=== PATIENT | male | born 1985 | race American Indian/Alaskan Native ===

== ENCOUNTER 2016-07-14 11:24 | Emergency (ER) | payer OTHER ==
--- NOTE | 2016-07-14 15:56 | Emergency Department Report ---
Abscess Boil HPI - HPI Chief Complaint: Skin/Abscess/Foreign Body Stated Complaint: BOIL ON TAIL BONE/DIFFICULTY WALKING Time Seen by Provider: 07/14/16 15:45 Duration: 4 Days Location: Sacral/Pilonidal Severity: Moderate History: Yes Pain, No Fever, No Purulent Drainage, No Numbness, No Foreign Body , No Previous History, No Insect Bite HPI: Patient is a 31-year-old male who presents with pain and mass on his tailbone that started 4 days ago. Patient states pain worsens weight stating. Patient states he is unable to sit due to the pain. Patient states masses on slightly bigger and has no drainage. Patient denies fever/chills/nausea/ vomiting/abdominal pain. Home Medications: Previous Rx's Medication Instructions Recorded Last Taken Type Amoxicillin/K Clav Tab [Augmentin 1 tab PO Q12HR #14 tab 07/14/16 Unknown Rx 875 mg] Ibuprofen [Motrin] 800 mg PO Q8HR PRN #30 tablet 07/14/16 Unknown Rx ED Review of Systems ROS: Stated complaint: BOIL ON TAIL BONE/DIFFICULTY WALKING Other details as noted in HPI Constitutional: denies: chills, fever Eyes: denies: eye pain, eye discharge, vision change ENT: denies: ear pain, throat pain Respiratory: denies: cough, orthopnea, shortness of breath, SOB with exertion, wheezing Cardiovascular: denies: chest pain, palpitations, orthopnea, edema Endocrine: no symptoms reported. denies: increased hunger Gastrointestinal: denies: abdominal pain, nausea, diarrhea Genitourinary: denies: urgency, dysuria Musculoskeletal: denies: back pain, joint swelling, arthralgia Skin: denies: rash, lesions Neurological: abnormal gait. denies: headache, weakness, paresthesias, confusion Psychiatric: denies: anxiety, depression, auditory hallucinations Hematological/Lymphatic: denies: easy bleeding, easy bruising ED Past Medical Hx - Past Medical History Previous Medical History?: No - Surgical History Past Surgical History?: No - Social History Smoking Status: Current Every Day Smoker Substance Use Type: None - Medications Home Medications: Home Medications Medication Instructions Recorded Confirmed Last Taken Type Amoxicillin/K Clav Tab [Augmentin 1 tab PO Q12HR #14 tab 07/14/16 Unknown Rx 875 mg] Ibuprofen [Motrin] 800 mg PO Q8HR PRN #30 tablet 07/14/16 Unknown Rx ED Abscess Boil Physical Exam - Exam General: Vital signs noted. No distress. Alert and acting appropriately. Size: 5 cm Exam: Yes Tenderness, Yes Fluctuance, Yes Normal Neurologic Exam, Yes Normal Circulation, No Surrounding Cellulites/Erythema, No Lymphangitis, No Crepitation , No Heart Murmur I & D Note - I & D Note I & D Note: Patient positioned appropriately, 15cc lidocaine without epinephrine was used as a local anesthetic. #11 blade scalpal used for single incision. Additional local anesthetic injected into surrounding viable tissue prior to blunt dissection of loculated adhesions. Copius drainage of pus ( culture obtained). Wound packed with iodoform gauze. Procedure tolerated without complications. Wound dressed with sterile 4x4 guaze and paper tape. Pt tolerated procedure well. ED Course Vital Signs 07/14/16 11:59 Temperature 99 F Pulse Rate 88 Respiratory 18 Rate Blood Pressure 142/98 O2 Sat by Pulse 97 Oximetry Critical care attestation.: If time is entered above; I have spent that time in minutes in the direct care of this critically ill patient, excluding procedure time. ED Medical Decision Making - Medical Decision Making 31-year-old male presents with right buttock abscess, Patient alert and oriented 3 vital signs stable. ED course: Patient received Toradol 60 mg IM prior to incision and drainage. Referred to incision and drainage note. Patient tolerated procedure well. Patient to go home on antibiotics and Motrin for pain. Discussed to follow up with primary care physician or ED in 4 days. ED Disposition Clinical Impression: Pilonidal abscess, Abscess of buttock, right Disposition: DISCHARGED TO HOME OR SELFCARE Is pt being admited?: No Does the pt Need Aspirin: No Condition: Stable Instructions: Abscess (ED), Abscess Incision and Drainage (ED) Prescriptions: Amoxicillin/K Clav Tab [Augmentin 875 mg] 1 tab PO Q12HR #14 tab Ibuprofen [Motrin] 800 mg PO Q8HR PRN #30 tablet PRN Reason: Pain Referrals: PRIMARY CARE, [Primary Care Provider] - 3-5 Days [facility] [Outside] - 3-5 Days [facility] [Outside] - 3-5 Days [facility] [Outside] - 3-5 Days Forms: Work/School Release Form(ED) Time of Disposition: :09
[2016-07-14] MEDS ORDERED: TORADOL IM ONE (15:57)
[2016-07-14] MEDS ORDERED: XYLOCAINE 2% INFILTRATI ONE (15:58)
[2016-07-14 17:27] VITALS: BP 121/63
== END 2016-07-14 17:26 | disposition home or self-care (01) ==
LOC: ED 11:24
DX: L02.31 Cutaneous abscess of buttock (principal); L05.01 Pilonidal cyst with abscess
CPT/HCPCS: 10060; 87116; 96372; 99282; J1885

== ENCOUNTER 2017-02-22 23:28 | Emergency (ER) | payer OTHER ==
--- NOTE | 2017-02-23 00:22 | XRay Report ---
FINAL REPORT EXAM: XR SHOULDER 2+V RT HISTORY: RIGHT SHOULDER PAIN COMPARISON: None available. FINDINGS: Three views of right shoulder obtained. Blunting of the distal clavicle which may relate to prior acromioplasty or posttraumatic changes. Mild osteophyte of the distal clavicle. Glenohumeral joint space preserved. No acute fracture dislocation. IMPRESSION: Blunting of the distal clavicle which may relate to sequelae of prior trauma or surgery. Mild osteophyte of the distal clavicle. No acute bony findings.
--- NOTE | 2017-02-23 04:27 | Emergency Department Report ---
HPI - General Chief Complaint: Extremity Injury, Upper Time Seen by Provider: 02/23/17 04:11 - HPI HPI: Patient is a 31-year-old male presents to ED complaining of right upper arm pain for the past 2 days. Patient states 2 days ago he was helping his friend move some couches up the stairs when he is friend dropped his end of the couch while he has remained holding the couch for a while. Patient states since then some pain in his upper biceps area. Patient states pain is localized to that area and does not radiate anywhere else. Patient denies any loss of sensation in the arm. He describes the pain as throbbing and aching in nature, 6 out of 10 in intensity. He denies fevers chills nausea vomiting abdominal pain or any other problems ED Past Medical Hx - Past Medical History Previous Medical History?: No - Surgical History Past Surgical History?: No - Social History Smoking Status: Current Every Day Smoker Substance Use Type: None - Medications Home Medications: Home Medications Medication Instructions Recorded Confirmed Last Taken Type Amoxicillin/K Clav Tab [Augmentin 1 tab PO Q12HR #14 tab 07/14/16 Unknown Rx 875 mg] Cyclobenzaprine [Flexeril 10 MG 10 mg PO QHS #20 tablet 02/23/17 Unknown Rx TAB] Ibuprofen [Motrin 800 MG tab] 800 mg PO Q8HR PRN #30 tablet 02/23/17 Unknown Rx ED Review of Systems ROS: Stated complaint: POSS DISLOCATED RT SHOULDER Other details as noted in HPI Constitutional: denies: chills, fever Eyes: denies: eye pain, eye discharge, vision change ENT: denies: ear pain, throat pain Respiratory: denies: cough, shortness of breath, wheezing Cardiovascular: denies: chest pain, palpitations Endocrine: no symptoms reported Gastrointestinal: denies: abdominal pain, nausea, diarrhea Genitourinary: denies: urgency, dysuria Musculoskeletal: myalgia. denies: back pain, joint swelling, arthralgia Skin: denies: rash, lesions Neurological: denies: headache, weakness, paresthesias Psychiatric: denies: anxiety, depression Hematological/Lymphatic: denies: easy bleeding, easy bruising Physical Exam - Physical Exam Vital Signs: Vital Signs 02/22/17 02/23/17 23:38 03:42 Temperature 98.2 F 97.8 F Pulse Rate 74 66 Respiratory 18 16 Rate Blood Pressure 147/99 Blood Pressure 155/100 [Left] O2 Sat by Pulse 97 97 Oximetry Physical Exam: GENERAL: Alert and oriented x3, no apparent distress, Normal Gait, atraumatic. HEAD: Head is normocephalic and a-traumatic. LUNGS: Symetrical with respiration, No wheezing, no rales or crackles, CTAB. HEART: S1, S2 present, regular rate and rhythm without murmur, no rubs, no gallops. Non tender to palpation EXTREMITIES/MUSCULOSKELETAL: No cyanosis, clubbing, rash, lesions or edema. Full ROM bilaterally. UE/LE Pulses 2+ bilaterally. LE and UE 5+ strength bilaterally, shoulder joints are intact. No pain with active and passive range of motion. Tender nose palpation of the biceps muscle on the right upper arm. No ecchymoses no swelling no bleeding. NEUROLOGIC: The patient is cooperative with no focal neurologic deficits.Normal speech. Normal sensation in bilateral upper and lower extremities, No loss of sensation, SKIN: Warm and dry, No lesions, No ulceration or induration present. ED Course Vital Signs 02/22/17 02/23/17 23:38 03:42 Temperature 98.2 F 97.8 F Pulse Rate 74 66 Respiratory 18 16 Rate Blood Pressure 147/99 Blood Pressure 155/100 [Left] O2 Sat by Pulse 97 97 Oximetry ED Medical Decision Making - Medical Decision Making 31-year-old male presents with myalgia of the bicep muscle ED course: Patient received Motrin and Flexeril in ED. Discussed the patient now has a list in the next couple of days Discussed the patient will follow up with primary care physician Discussed the patient and take medications as prescribed. Patient has no neurological deficit. Patient is alert and oriented 3 and understands all instructions given. Discussed drowsiness effect of Flexeril makes her drowsy and not to operate machinery while taking flexeril Critical care attestation.: If time is entered above; I have spent that time in minutes in the direct care of this critically ill patient, excluding procedure time. ED Disposition Clinical Impression: Myalgia Disposition: [id number] TO HOME OR SELFCARE Is pt being admited?: No Does the pt Need Aspirin: No Condition: Stable Instructions: Trigger Point Pain (ED), Musculoskeletal Pain (ED), Heat Pack Application (ED) Additional Instructions: Follow-up with primary care physician is referred Particular medication as prescribed No heavy lifting for the next couple of days. Prescriptions: Cyclobenzaprine [Flexeril 10 MG TAB] 10 mg PO QHS #20 tablet Ibuprofen [Motrin 800 MG tab] 800 mg PO Q8HR PRN #30 tablet PRN Reason: Pain Referrals: PRIMARY CARE, [Primary Care Provider] - 3-5 Days [facility] [Outside] - 3-5 Days [facility] [Outside] - 3-5 Days Forms: Accompanied Note, Work/School Release Form(ED) Time of Disposition: 05:08
[2017-02-23] MEDS ORDERED: MOTRIN PO ONE (05:03)
[2017-02-23] MEDS ORDERED: FLEXERIL PO ONE (05:03)
[2017-02-23 05:36] VITALS: BP 150/99
== END 2017-02-23 05:36 | disposition home or self-care (01) ==
LOC: ED 23:28
DX: M79.1 Myalgia (principal); F17.200 Nicotine dependence, unspecified, uncomplicated